=== PATIENT | male | born 1965 | race Caucasian/White ===

== ENCOUNTER 2022-03-13 11:12 | Emergency (ER) | payer OTHER ==
[~2022-03-13] VITALS: Ht 177.8 cm; Wt 128.8 kg
[2022-03-13] MEDS ORDERED: QUDEXY XR50 MG PO (12:53)
[2022-03-13] MEDS ORDERED: OMEPRAZOLE20 MG PO (12:53)
[2022-03-13] MEDS ORDERED: GABAPENTIN300 MG PO (12:54)
[2022-03-13] MEDS ORDERED: ADULT LOW DOSE81 MG PO (12:54)
[2022-03-13] MEDS ORDERED: LIPITOR40 MG PO (12:54)
[2022-03-13] MEDS ORDERED: METFORMIN HCL1000 MG PO (12:55)
[2022-03-13] MEDS ORDERED: LISINOPRIL20 MG PO (12:55)
[2022-03-13] MEDS ORDERED: BRIMONIDINE TART5 ML OPTH (12:56)
[2022-03-13] MEDS ORDERED: FLUOXETINE HCL20 MG PO (12:56)
[2022-03-13] MEDS ORDERED: REMERON30 MG (12:56)
== END 2022-03-13 16:24 | disposition home or self-care (01) ==
LOC: ED 11:12
DX: M23.92 Unspecified internal derangement of left knee (principal); I10 Essential (primary) hypertension; E11.9 Type 2 diabetes mellitus without complications; F43.10 Post-traumatic stress disorder, unspecified; Z79.899 Other long term (current) drug therapy; Z79.82 Long term (current) use of aspirin; Z79.84 Long term (current) use of oral hypoglycemic drugs
CPT/HCPCS: 73560; 99283-25